=== PATIENT | male | born 1945 | race Caucasian/White ===

== ENCOUNTER 2021-02-28 08:48 | Inpatient (IN) | payer MEDICARE, MEDICAID ==
[~2021-02-28] VITALS: Ht 177.8 cm; Wt 70.5 kg
[~2021-02-28 08:48] MED LIST: ALOG12.5 PO; ASPI-611 PO; CHOL10006 PO; CYCL-1 PO; EMPA10TA PO; FLO0.4C PO; INSU100I25 SQ; LOP25T PO; MULT-384 PO; OXYC-150 PO; ROSU10TA2 PO
[2021-02-28] MEDS ORDERED: normal saline 1000ML IV soln IVB ONE (10:25)
[2021-02-28 11:06] LABS: CLARITY,URINE CLEAR (Clear); COLOR,URINE YELLOW (Yellow); GLUCOSE, URINE >=1000 mg/dl (Neg); KETONES,URINE 40 mg/dl (Neg); NITRITES, URINE NEGATIVE (Neg); OCCULT BLOOD,URINE NEGATIVE (Neg); PROTEIN,URINE NEGATIVE (Neg); UA COLLECTION TYPE URINAL
[2021-02-28 11:07] LABS: LEUKOCYTE ESTERASE ,URINE NEGATIVE (Neg); UROBILINOGEN,URINE 0.2 E.U/dL (0.2-1.0)
[2021-02-28 11:13] LABS: BASOPHILS % (AUTO) 0 % (0-1); EOSINOPHILS % (AUTO) 0 % (0-6); LYMPHOCYTES # (AUTO) 0.7 X10'3 (1.1-4.8); MONOCYTES # (AUTO) 0.5 X10'3 (0-0.9)
[2021-02-28 11:15] LABS: LYMPHOCYTES % (AUTO) 3.5 % (21-51); MEAN CORPUSCULAR HEMOGLOBIN 30.3 PG (27.0-31.0); MEAN CORPUSCULAR VOLUME 91.7 FL (78-98); MEAN PLATELET VOLUME 9.4 FL (7.4-10.4); MONOCYTES % (AUTO) 2.4 % (2-12); NEUTROPHILS % (AUTO) 94.1 % (42-75); PLATELET COUNT 274 X10'3 (140-440); RED BLOOD COUNT 1.78 X10'6 (4.70-6.10); RED CELL DISTRIBUTION WIDTH 20.2 % (11.5-14.5); WHITE BLOOD COUNT 19.1 X10'3 (4.5-11.0)
[2021-02-28 11:21] LABS: BACTERIA,URINE NONE SEEN /HPF (Neg); MUCUS STRANDS NONE SEEN /LPF (Neg); RBC,URINE NONE SEEN /HPF (0-2); SQUAMOUS EPITHELIAL CELL,UR NONE SEEN /LPF (FEW); WBC,URINE NONE SEEN /HPF (0-4)
[2021-02-28 11:28] LABS: ALANINE AMINOTRANSFERASE 21 U/L (12-78); ALBUMIN 2.4 G/DL (3.4-5.0); ALBUMIN/GLOBULIN RATIO 0.6 (1.1-1.5); ALKALINE PHOSPHATASE 84 IU/L (46-116); ANION GAP 16 (8-16); ASPARTATE AMINO TRANSFERASE 17 U/L (10-37); BILIRUBIN,TOTAL 0.4 MG/DL (0.1-1.0); BLOOD UREA NITROGEN 70 MG/DL (7-18); BUN/CREATININE RATIO 40.5 (5.4-32.0); CALCIUM 8.4 MG/DL (8.5-10.1); CHLORIDE 93 MMOL/L (99-107); CREATININE 1.73 MG/DL (0.60-1.10); ETHANOL < 0.010 GM/DL (0.0-0.010); SODIUM 131 MMOL/L (135-145); TOTAL CARBON DIOXIDE 22.5 MMOL/L (24-32); TOTAL PROTEIN 6.5 G/DL (6.4-8.2); eGFR 39 ML/MIN
[2021-02-28 11:30] LABS: GLUCOSE 745 MG/DL (70-104)
[2021-02-28 11:33] LABS: HEMATOCRIT 16.3 % (42.0-52.0); HEMOGLOBIN 5.4 g/dl (14.0-17.9)
[2021-02-28 11:59] LABS: ANISOCYTOSIS 3+; NUCLEATED RED BLOOD CELLS 2 /100WBC (0-0); PLATELET ESTIMATE NORMAL; POLYCHROMASIA 2+; TOTAL CELLS COUNTED 100
[2021-02-28] MEDS ORDERED: levoFLOXACIN-Levaquin 750MG/D5 150 ML IV ONE (12:05)
[2021-02-28] MEDS ORDERED: magnesium hydroxide 30ml (MOM) UD suspension PO PRN (14:15)
[2021-02-28] MEDS ORDERED: mag hydrox/Alum hydrox/simeth 30ml oral suspension PO PRN (14:15)
[2021-02-28] MEDS ORDERED: glucagon, human recombinant 1mg kit SUBCUT PRN (14:15)
[2021-02-28] MEDS ORDERED: ondansetron/PF 4mg/2ml inj IV PRN (14:15)
[2021-02-28] MEDS ORDERED: dextrose 50%-water 50ml dispensing syringe IV PRN ×2 (14:15)
[2021-02-28] MEDS ORDERED: acetaminophen 325mg tablet PO PRN ×2 (14:15)
[2021-02-28] MEDS ORDERED: HYDROcodone/acetaminophen 5mg/325mg tablet PO PRN (14:15)
[2021-02-28] MEDS ORDERED: morphine 2 MG/ML inj. syringe IV PRN ×2 (14:15)
[2021-02-28] MEDS ORDERED: dextrose ORAL solution 15 GM/59 ML bottle PO PRN ×2 (14:15)
[2021-02-28] MEDS ORDERED: MESSAGE TO PHARMACY PO ONE (14:15)
[2021-02-28 14:27] VITALS: BP 107/55
[2021-02-28 14:52] VITALS: BP 119/59
[2021-02-28 15:00] LABS: HEMOGLOBIN A1C 10.8 % (4.5-6.2)
[2021-02-28 17:18] VITALS: BP 88/42
[2021-02-28 17:25] VITALS: BP 88/42
[2021-02-28 17:50] VITALS: BP 115/50
--- NOTE | 2021-02-28 18:33 | NUR ---
ASSUMED CARE OF PT. PT LYING DOWN IN BED GETTING BLOOD TRANSFUSION. HE IS ABLE TO HAVE A FULL CONVERSATION WITH ME.
--- NOTE | 2021-02-28 18:40 | NUR ---
ASSUMED CARE OF PT WITH BLOOD HANGING BUT I AM UNABLE TO FIND ANY CHARTING DONE ON SECOND UNIT OF BLOOD. ATTEMPTED TO REACH PRIOR NURSE.
--- NOTE | 2021-02-28 18:55 | NUR ---
2ND UNIT STOPPED TRANSFUSION. VITALS INCLUDE 97.7 FAHRENHEIT, HEART RATE 89 BPM, RESPIRATORY RATE 16, BP 104/49.
[2021-02-28] MEDS: pantoprazole 40 MG vial IV SCH (23:18)
[2021-02-28] MEDS: docusate sod 100mg capsule PO SCH (23:21)
[2021-02-28 23:23] LABS: EOSINOPHILS % (AUTO) 0 % (0-6); HEMOGLOBIN 7.5 g/dl (14.0-17.9); MONOCYTES # (AUTO) 1.2 X10'3 (0-0.9)
[2021-02-28 23:24] LABS: BASOPHILS % (AUTO) 0 % (0-1); HEMATOCRIT 22.2 % (42.0-52.0); LYMPHOCYTES # (AUTO) 0.8 X10'3 (1.1-4.8); LYMPHOCYTES % (AUTO) 6.3 % (21-51); MEAN CORPUSCULAR HEMOGLOBIN 30.8 PG (27.0-31.0); MEAN CORPUSCULAR HGB CONC 33.8 g/dL (33.0-36.5); MEAN CORPUSCULAR VOLUME 91.1 FL (78-98); MEAN PLATELET VOLUME 9.8 FL (7.4-10.4); MONOCYTES % (AUTO) 8.8 % (2-12); NEUTROPHILS # (AUTO) 11.4 X10'3 (1.8-7.7); NEUTROPHILS % (AUTO) 84.9 % (42-75); PLATELET COUNT 201 X10'3 (140-440); RED BLOOD COUNT 2.43 X10'6 (4.70-6.10); RED CELL DISTRIBUTION WIDTH 16.9 % (11.5-14.5); WHITE BLOOD COUNT 13.4 X10'3 (4.5-11.0)
[2021-03-01] MEDS: insulin glargine (Lantus) pen - multi-dose SQ SCH ×2 (00:04→22:13)
--- NOTE | 2021-03-01 03:12 | NUR ---
BP TAKEN AT 0255 LIKELY NOT A TRUE NUMBER. BP CUFF WAS LOOSE. ONCE BP WAS READJUSTED BP READING AT 0300 WAS 114/60 WITH A MAP OF 73. I SPOKE TO DR SIERRA CONCERNING THE MATTER. HAVE AN ORDER FOR A LINDA CATHETER AND TO START NS RUNNING AT 100 ML/HR.
--- NOTE | 2021-03-01 03:33 | NUR ---
rodriguez catheter is placed. draining well.
[2021-03-01] MEDS ORDERED: normal saline 1000ml 1,000 ML IV SCH (03:55)
[2021-03-01] MEDS: normal saline 1000ml 1,000 ML IV SCH ×3 (04:20→22:45)
[2021-03-01 05:50] LABS: BASOPHILS % (AUTO) 0 % (0-1); EOSINOPHILS % (AUTO) 0 % (0-6); HEMOGLOBIN 7.7 g/dl (14.0-17.9); MONOCYTES # (AUTO) 0.9 X10'3 (0-0.9)
[2021-03-01 05:51] LABS: HEMATOCRIT 22.7 % (42.0-52.0); LYMPHOCYTES % (AUTO) 7.4 % (21-51); MEAN CORPUSCULAR HEMOGLOBIN 30.5 PG (27.0-31.0); MEAN CORPUSCULAR HGB CONC 33.7 g/dL (33.0-36.5); MEAN CORPUSCULAR VOLUME 90.4 FL (78-98); MEAN PLATELET VOLUME 9.6 FL (7.4-10.4); MONOCYTES % (AUTO) 6.7 % (2-12); NEUTROPHILS # (AUTO) 11.4 X10'3 (1.8-7.7); NEUTROPHILS % (AUTO) 85.9 % (42-75); PLATELET COUNT 211 X10'3 (140-440); RED BLOOD COUNT 2.51 X10'6 (4.70-6.10); RED CELL DISTRIBUTION WIDTH 17.1 % (11.5-14.5); WHITE BLOOD COUNT 13.2 X10'3 (4.5-11.0)
[2021-03-01 05:56] LABS: ALBUMIN 2.1 G/DL (3.4-5.0); ANION GAP 13 (8-16); BLOOD UREA NITROGEN 61 MG/DL (7-18); BUN/CREATININE RATIO 43.3 (5.4-32.0); CALCIUM 8.2 MG/DL (8.5-10.1); CHLORIDE 97 MMOL/L (99-107); CREATININE 1.41 MG/DL (0.60-1.10); GLUCOSE 444 MG/DL (70-104); POTASSIUM 3.3 MMOL/L (3.5-5.1); SODIUM 131 MMOL/L (135-145); TOTAL CARBON DIOXIDE 21.3 MMOL/L (24-32); eGFR 49 ML/MIN
[2021-03-01] MEDS: docusate sod 100mg capsule PO SCH ×3 (08:00→19:34)
[2021-03-01 08:07] LABS: NUCLEATED RED BLOOD CELLS 6 /100WBC (0-0); PLATELET ESTIMATE NORMAL; TOTAL CELLS COUNTED 100
[2021-03-01 08:08] LABS: ANISOCYTOSIS 1+; POIKILOCYTOSIS 1+; POLYCHROMASIA 3+
[2021-03-01] MEDS: pantoprazole 40 MG vial IV SCH ×2 (08:48→19:34)
[2021-03-01] MEDS: insulin Lispro (HumaLOG) vial - multi-dose SQ SCH ×3 (08:55→22:15)
--- NOTE | 2021-03-01 14:26 | NUR ---
dr knapp was here and given verbal orders for miralax for constipation and order potassium bicarb 40 meq eff po tab onces . Addendum: 03/01/21 at [address] AYALA ALSO GIVEN TH EORDER TO REPEAT CBC 24 HR AFTER THE LAST BLD TRANSFUSION.
--- NOTE | 2021-03-01 14:30 | NUR ---
Patient in room PCU 3027. I have received report from David DIAZ and had the opportunity to ask questions and will assume patient care when he arrives to the floor.
--- NOTE | 2021-03-01 15:05 | NUR ---
Patient arrive to the floor, vitals are stable
[2021-03-01 15:15] VITALS: BP 110/55
--- NOTE | 2021-03-01 16:07 | NUR ---
PAGER ID: [phone] MESSAGE: May I place Nba Kendrickphrey room 0389P on the K+ replacement protocol? His K+ is 3.3. Maureen ext [phone]
[2021-03-01 18:00] VITALS: BP 119/59
--- NOTE | 2021-03-01 18:14 | NUR ---
Problems reprioritized. Patient report given, questions answered & plan of care reviewed with Yariel RN.
[2021-03-01 19:26] LABS: EOSINOPHILS % (AUTO) 0 % (0-6); HEMOGLOBIN 7.3 g/dl (14.0-17.9); MEAN CORPUSCULAR HEMOGLOBIN 30.4 PG (27.0-31.0); MONOCYTES # (AUTO) 1.3 X10'3 (0-0.9); MONOCYTES % (AUTO) 7.4 % (2-12); NEUTROPHILS # (AUTO) 15.6 X10'3 (1.8-7.7); RED BLOOD COUNT 2.39 X10'6 (4.70-6.10)
[2021-03-01 19:28] LABS: BASOPHILS % (AUTO) 0 % (0-1); LYMPHOCYTES # (AUTO) 0.9 X10'3 (1.1-4.8); LYMPHOCYTES % (AUTO) 5.2 % (21-51); MEAN CORPUSCULAR VOLUME 92.2 FL (78-98); MEAN PLATELET VOLUME 8.9 FL (7.4-10.4); NEUTROPHILS % (AUTO) 87.4 % (42-75); PLATELET COUNT 220 X10'3 (140-440); RED CELL DISTRIBUTION WIDTH 18.2 % (11.5-14.5); WHITE BLOOD COUNT 17.9 X10'3 (4.5-11.0)
[2021-03-01] MEDS: POTASSIUM BICARB 20meq eff tab 20 MEQ TABLET.EFF PO SCH (20:58)
[2021-03-01] MEDS: polyethylene glycol 3350 17gm powd pack PO SCH ×2 (21:00→22:18)
[2021-03-01 22:00] VITALS: BP 121/62
--- NOTE | 2021-03-01 23:28 | NUR ---
Notified MD of patient Hematocrit level of 22.0. No new orders at this time.
[2021-03-02] VITALS (7 sets, daily range): BP systolic 96–117; BP diastolic 49–64
--- NOTE | 2021-03-02 06:26 | NUR ---
Patient in room PCU 3027. I have received report from Yariel DIAZ and had the opportunity to ask questions and assume patient care.
[2021-03-02 06:28] LABS: BASOPHILS % (AUTO) 0.1 % (0-1); EOSINOPHILS % (AUTO) 0 % (0-6); LYMPHOCYTES # (AUTO) 0.8 X10'3 (1.1-4.8); MONOCYTES # (AUTO) 1.4 X10'3 (0-0.9); NEUTROPHILS # (AUTO) 12.7 X10'3 (1.8-7.7)
--- NOTE | 2021-03-02 06:29 | NUR ---
No signs of distress noted. VSS throughout shift. Catheter and miki care performed. call light and personal belongings placed within reach. patient aware of plan of care. Report given to Maureen.
[2021-03-02 06:31] LABS: LYMPHOCYTES % (AUTO) 5.5 % (21-51); MEAN CORPUSCULAR HEMOGLOBIN 31.1 PG (27.0-31.0); MEAN CORPUSCULAR VOLUME 91.5 FL (78-98); MEAN PLATELET VOLUME 8.9 FL (7.4-10.4); MONOCYTES % (AUTO) 9.4 % (2-12); PLATELET COUNT 192 X10'3 (140-440); RED BLOOD COUNT 2.22 X10'6 (4.70-6.10); RED CELL DISTRIBUTION WIDTH 18.9 % (11.5-14.5); WHITE BLOOD COUNT 14.9 X10'3 (4.5-11.0)
[2021-03-02 06:52] LABS: ALBUMIN 1.9 G/DL (3.4-5.0); ANION GAP 8 (8-16); BLOOD UREA NITROGEN 37 MG/DL (7-18); CALCIUM 8.2 MG/DL (8.5-10.1); CHLORIDE 104 MMOL/L (99-107); CREATININE 1.12 MG/DL (0.60-1.10); GLUCOSE 201 MG/DL (70-104); SODIUM 136 MMOL/L (135-145); TOTAL CARBON DIOXIDE 24.5 MMOL/L (24-32); eGFR 64 ML/MIN
[2021-03-02 06:56] LABS: HEMATOCRIT 20.3 % (42.0-52.0); HEMOGLOBIN 6.9 g/dl (14.0-17.9)
--- NOTE | 2021-03-02 07:01 | NUR ---
Patient [facility] room 3024K has a critical Hgb of 6.9, and HCT 20.3. Please advise Ruth DIAZ ext. [phone].PAGER ID: [phone]
--- NOTE | 2021-03-02 07:18 | NUR ---
PAGER ID: [phone] MESSAGE: Wolf Stern [phone] has a critical K+ 3.0. Maureen ext [phone]
[2021-03-02] MEDS: pantoprazole 40 MG vial IV SCH (07:31)
[2021-03-02] MEDS: POTASSIUM BICARB 20meq eff tab 20 MEQ TABLET.EFF PO SCH ×2 (07:31→12:53)
[2021-03-02] MEDS: docusate sod 100mg capsule PO SCH (08:00)
[2021-03-02 08:17] LABS: ALANINE AMINOTRANSFERASE 17 U/L (12-78); ALBUMIN/GLOBULIN RATIO 0.6 (1.1-1.5); ALKALINE PHOSPHATASE 76 IU/L (46-116); ASPARTATE AMINO TRANSFERASE 25 U/L (10-37); BILIRUBIN,DIRECT 0.2 MG/DL (0-0.3); BILIRUBIN,TOTAL 0.5 MG/DL (0.1-1.0); TOTAL PROTEIN 5.3 G/DL (6.4-8.2)
[2021-03-02 08:48] LABS: PLATELET ESTIMATE NORMAL
[2021-03-02 08:49] LABS: ANISOCYTOSIS 2+; POLYCHROMASIA 2+
[2021-03-02 08:50] LABS: LARGE PLATELETS FEW
--- NOTE | 2021-03-02 09:05 | NUR ---
Diabetes consult: A1C 10.8 up from 8.9 in October of this year. Noted on last admit in October pt was DNR w/ comfort care, currently DNR this admit. DM education not appropriate at this time, will continue to monitor. Addendum: 03/02/21 at [address] Amended: Links added.
[2021-03-02] MEDS: normal saline 1000ml 1,000 ML IV SCH (09:55)
[2021-03-02 10:42] LABS: OCCULT BLOOD STOOL NEGATIVE (Neg)
[2021-03-02] MEDS: insulin Lispro (HumaLOG) vial - multi-dose SQ SCH (13:18)
[2021-03-02 15:36] LABS: HEMATOCRIT 24.4 % (42.0-52.0); HEMOGLOBIN 8.1 g/dl (14.0-17.9); MEAN CORPUSCULAR HEMOGLOBIN 30.4 PG (27.0-31.0); MEAN CORPUSCULAR VOLUME 92.1 FL (78-98); MEAN PLATELET VOLUME 9.1 FL (7.4-10.4); PLATELET COUNT 178 X10'3 (140-440); RED BLOOD COUNT 2.65 X10'6 (4.70-6.10); RED CELL DISTRIBUTION WIDTH 17.6 % (11.5-14.5); WHITE BLOOD COUNT 13.7 X10'3 (4.5-11.0)
--- NOTE | 2021-03-02 17:53 | NUR ---
I agree with Preceptee Ruth DIAZ's physical assessment and charting.
--- NOTE | 2021-03-02 17:54 | NUR ---
Patient is stable for discharge per Dr. Kothari orders. Report given to Gladys at [facility]. PIV discontinued, cannula intact. Batista catheter discontinued, cannula intact. youth nutritional monitor discontinued. Patient had no belongings to take with them. Patient transported by [facility] via a gurney by [facility] personnel.
== END 2021-03-02 17:50 | DRG 811 ==
LOC: ER 08:49 → ED HOLD 14:17 → EDBEDREQ 03-01 13:33 → PCU 3S 03-01 15:03
PROVIDERS: ADMIT Internal Medicine; ATTEND Internal Medicine
PROC: 30233N1 Transfusion of Nonautologous Red Blood Cells into Peripheral Vein, Percutaneous Approach (ICD-10-PCS; principal; 2021-02-28)
DX: D64.9 Anemia, unspecified (principal); J18.9 Pneumonia, unspecified organism; E43 Unspecified severe protein-calorie malnutrition; N17.9 Acute kidney failure, unspecified; J44.0 Chronic obstructive pulmonary disease with (acute) lower respiratory infection; E11.22 Type 2 diabetes mellitus with diabetic chronic kidney disease; N18.30 Chronic kidney disease, stage 3 unspecified; E11.65 Type 2 diabetes mellitus with hyperglycemia; I12.9 Hypertensive chronic kidney disease with stage 1 through stage 4 chronic kidney disease, or unspecified chronic kidney disease; E78.00 Pure hypercholesterolemia, unspecified; E78.5 Hyperlipidemia, unspecified; Z20.822 Contact with and (suspected) exposure to COVID-19; E87.6 Hypokalemia; W18.39XA Other fall on same level, initial encounter; F12.90 Cannabis use, unspecified, uncomplicated; D32.9 Benign neoplasm of meninges, unspecified; Z66 Do not resuscitate; N40.0 Benign prostatic hyperplasia without lower urinary tract symptoms; Z60.2 Problems related to living alone; S09.90XA Unspecified injury of head, initial encounter; Z79.4 Long term (current) use of insulin; Z79.82 Long term (current) use of aspirin; Z85.118 Personal history of other malignant neoplasm of bronchus and lung; Z79.84 Long term (current) use of oral hypoglycemic drugs; Z79.899 Other long term (current) drug therapy; Z68.22 Body mass index [BMI] 22.0-22.9, adult; Y93.89 Activity, other specified; Y99.8 Other external cause status; Y92.091 Bathroom in other non-institutional residence as the place of occurrence of the external cause
CPT/HCPCS: 36415; 36430; 70450; 71045; 80048; 80053; 80076; 80320; 81001; 82272; 82948; 83036; 83880; 84484; 85007; 85008; 85025; 85027; 85610; 86885; 86900; 86901; 86920; 87081; 87635; 93005; 96365; 99291; C9113; G0378; J1815; J1956; J2270; J7030; P9016

== ENCOUNTER 2021-03-05 07:56 | Inpatient (IN) | payer MEDICARE, MEDICAID ==
[2021-03-05] VITALS (9 sets, daily range): BP systolic 77–104; BP diastolic 41–53
[~2021-03-05] VITALS: Ht 179.1 cm; Wt 74.0 kg
[2021-03-05] MEDS ORDERED: normal saline 1000ml 1,000 ML IV ONE ×2 (08:10→08:45)
--- NOTE | 2021-03-05 08:12 | NUR ---
DR KEENAN IN TO ASSESS PATIENT AT THIS TIME, PATIENT STATES HE DOES NOT WANT INTUBATION NOR COMPRESSIONS. MD AWARE OF BP 84/43.
[2021-03-05 08:20] LABS: EOSINOPHILS % (AUTO) 0 % (0-6); LYMPHOCYTES # (AUTO) 0.6 X10'3 (1.1-4.8)
[2021-03-05 08:22] LABS: BASOPHILS % (AUTO) 0 % (0-1); MEAN CORPUSCULAR HEMOGLOBIN 31.1 PG (27.0-31.0); MEAN CORPUSCULAR VOLUME 97.1 FL (78-98); MEAN PLATELET VOLUME 9.4 FL (7.4-10.4); MONOCYTES # (AUTO) 0.7 X10'3 (0-0.9); NEUTROPHILS # (AUTO) 11.8 X10'3 (1.8-7.7); PLATELET COUNT 144 X10'3 (140-440); RED BLOOD COUNT 1.04 X10'6 (4.70-6.10); RED CELL DISTRIBUTION WIDTH 21.1 % (11.5-14.5); WHITE BLOOD COUNT 13.1 X10'3 (4.5-11.0)
[2021-03-05 08:33] LABS: HEMATOCRIT 10.1 % (42.0-52.0); HEMOGLOBIN 3.2 g/dl (14.0-17.9)
[2021-03-05 08:34] LABS: ALANINE AMINOTRANSFERASE 16 U/L (12-78); ALBUMIN 1.3 G/DL (3.4-5.0); ALBUMIN/GLOBULIN RATIO 0.5 (1.1-1.5); ALKALINE PHOSPHATASE 45 IU/L (46-116); ANION GAP 10 (8-16); ASPARTATE AMINO TRANSFERASE 18 U/L (10-37); BILIRUBIN,TOTAL 0.3 MG/DL (0.1-1.0); BLOOD UREA NITROGEN 57 MG/DL (7-18); BUN/CREATININE RATIO 38.5 (5.4-32.0); CALCIUM 7.8 MG/DL (8.5-10.1); CHLORIDE 104 MMOL/L (99-107); CREATININE 1.48 MG/DL (0.60-1.10); GLUCOSE 243 MG/DL (70-104); POTASSIUM 4.3 MMOL/L (3.5-5.1); SODIUM 136 MMOL/L (135-145); TOTAL PROTEIN 3.8 G/DL (6.4-8.2); eGFR 46 ML/MIN
[2021-03-05] MEDS ORDERED: tranexamic acid 100mg/ml inj. IV ONE (08:35)
[2021-03-05] MEDS ORDERED: pantoprazole 40 MG vial IV ONE (08:35)
[2021-03-05] MEDS ORDERED: iohexol 300mg/ml 100ml inj. ONE (08:47)
[2021-03-05] MEDS ORDERED: azithromycin/NS 500mg/250ml 250 ML IV ONE (09:00)
[2021-03-05] MEDS ORDERED: CefTRIAXone/D5W-Rocephin 1gm 50 ML IV ONE (09:00)
[2021-03-05] MEDS: pantoprazole 40MG/NS 100ML BAG 100 ML IV SCH ×3 (09:08→20:19)
[2021-03-05 09:12] LABS: ANISOCYTOSIS 3+; PLATELET ESTIMATE NORMAL; TOTAL CELLS COUNTED 100
[2021-03-05 09:13] LABS: POLYCHROMASIA 2+
[2021-03-05 09:14] LABS: SCHISTOCYTES FEW
[2021-03-05] MEDS ORDERED: NORepinephrine inj. 32 MG in normal saline 250ml IV soln 218 ML IV SCH (10:00)
[2021-03-05] MEDS ORDERED: ondansetron/PF 4mg/2ml inj IV ONE (10:00)
[2021-03-05] MEDS ORDERED: fentaNYL/PF 50MCG/1 ML 2ML syringe IV ONE (10:00)
[2021-03-05] MEDS ORDERED: NORepinephrine 8mg/ 250ml NS 250 ML IV SCH (10:10)
[2021-03-05 10:14] LABS: CLARITY,URINE SLIGHTLY CLOUDY (Clear); COLOR,URINE STRAW (Yellow); GLUCOSE, URINE >=1000 mg/dl (Neg); KETONES,URINE NEGATIVE (Neg); NITRITES, URINE NEGATIVE (Neg); OCCULT BLOOD,URINE MODERATE (Neg); PROTEIN,URINE NEGATIVE (Neg); UA COLLECTION TYPE NON-SPECIFIED
[2021-03-05 10:15] LABS: LEUKOCYTE ESTERASE ,URINE NEGATIVE (Neg); UROBILINOGEN,URINE 0.2 E.U/dL (0.2-1.0)
[2021-03-05 10:21] LABS: BACTERIA,URINE NONE SEEN /HPF (Neg); RBC,URINE NONE SEEN /HPF (0-2); SQUAMOUS EPITHELIAL CELL,UR NONE SEEN /LPF (FEW); WBC,URINE 0-4 /HPF (0-4)
[2021-03-05 11:25] LABS: OCCULT BLOOD STOOL POSITIVE (Neg)
[2021-03-05 13:06] LABS: BASOPHILS % (AUTO) 0.1 % (0-1); EOSINOPHILS % (AUTO) 0 % (0-6); LYMPHOCYTES # (AUTO) 0.5 X10'3 (1.1-4.8); LYMPHOCYTES % (AUTO) 4.6 % (21-51); MEAN CORPUSCULAR HEMOGLOBIN 30.4 PG (27.0-31.0); MEAN CORPUSCULAR HGB CONC 33.4 g/dL (33.0-36.5); MEAN PLATELET VOLUME 8.2 FL (7.4-10.4); MONOCYTES # (AUTO) 0.8 X10'3 (0-0.9); MONOCYTES % (AUTO) 7.3 % (2-12); NEUTROPHILS # (AUTO) 9.5 X10'3 (1.8-7.7); PLATELET COUNT 141 X10'3 (140-440); RED BLOOD COUNT 2.06 X10'6 (4.70-6.10); RED CELL DISTRIBUTION WIDTH 18.9 % (11.5-14.5); WHITE BLOOD COUNT 10.8 X10'3 (4.5-11.0)
[2021-03-05 13:10] LABS: HEMATOCRIT 18.7 % (42.0-52.0); HEMOGLOBIN 6.3 g/dl (14.0-17.9)
--- NOTE | 2021-03-05 13:21 | NUR ---
RELIEVING RN FOR BREAK, PT TO CT
[2021-03-05] MEDS ORDERED: metroNIDAZOLE-Flagyl 500mg/NS 100 ML IV STA (14:13)
[2021-03-05 14:26] LABS: ANISOCYTOSIS 2+; NUCLEATED RED BLOOD CELLS 1 /100WBC (0-0); PLATELET ESTIMATE NORMAL; POLYCHROMASIA 2+; TOTAL CELLS COUNTED 100
[2021-03-05] MEDS ORDERED: metroNIDAZOLE 500mg tablet PO ONE (14:55)
[2021-03-05 15:41] LABS: ABG BASE EXCESS -2.8 mmol/L (-2.0-2.0); ABG HCO3 20.5 mmol/L (22.0-26.0); ABG OXYGEN SATURATION 92.4 % (94-97); ABG PCO2 (T) 28.4 mmHg (35.0-48.0); ABG PO2 (T) 61.5 mmHg (75.0-100.0); ALLEN'S TEST POSITIVE; FCOHb 1.2 % (0.0-3.9); FMetHb 0.3 % (0.0-1.5); PATIENT TEMPERATURE 36.8; TOTAL HEMOGLOBIN 6.3 G/dl (14.0-18.0)
[2021-03-05] MEDS ORDERED: magnesium hydroxide 30ml (MOM) UD suspension PO PRN (16:20)
[2021-03-05] MEDS ORDERED: dextrose ORAL solution 15 GM/59 ML bottle PO PRN ×2 (16:20)
[2021-03-05] MEDS ORDERED: HYDROcodone/acetaminophen 5mg/325mg tablet PO PRN (16:20)
[2021-03-05] MEDS ORDERED: glucagon, human recombinant 1mg kit SUBCUT PRN (16:20)
[2021-03-05] MEDS ORDERED: acetaminophen 325mg tablet PO PRN (16:20)
[2021-03-05] MEDS ORDERED: MESSAGE TO PHARMACY PO ONE (16:20)
[2021-03-05] MEDS ORDERED: ondansetron/PF 4mg/2ml inj IV PRN (16:20)
[2021-03-05] MEDS ORDERED: dextrose 50%-water 50ml dispensing syringe IV PRN ×2 (16:20)
[2021-03-05] MEDS ORDERED: mag hydrox/Alum hydrox/simeth 30ml oral suspension PO PRN (16:20)
--- NOTE | 2021-03-05 16:26 | NUR ---
DR AYALA UPDATED ON PATIENT STATUS AT THIS TIME, AWARE OF BP 89/47, ORDERS RECEIVED, WILL CONTINUE TO MONITOR.
[2021-03-05 16:50] LABS: MEAN CORPUSCULAR HEMOGLOBIN 30.3 PG (27.0-31.0); MEAN CORPUSCULAR HGB CONC 33.4 g/dL (33.0-36.5); MEAN CORPUSCULAR VOLUME 90.7 FL (78-98); MEAN PLATELET VOLUME 7.9 FL (7.4-10.4); PLATELET COUNT 192 X10'3 (140-440); RED BLOOD COUNT 2.18 X10'6 (4.70-6.10); RED CELL DISTRIBUTION WIDTH 19.3 % (11.5-14.5); WHITE BLOOD COUNT 13.7 X10'3 (4.5-11.0)
[2021-03-05 16:57] LABS: PARTIAL THROMBOPLASTIN TIME 20 SECONDS (22-32)
[2021-03-05 17:00] LABS: HEMOGLOBIN 6.6 g/dl (14.0-17.9)
[2021-03-05 17:01] LABS: HEMATOCRIT 19.8 % (42.0-52.0)
--- NOTE | 2021-03-05 17:33 | NUR ---
per lab phone call. unable to collect A1C on patient because he is currently recieving blood transfusion. previous blood sample upon admission was limited therefore we do not have an A1C for this pt
[2021-03-05] MEDS ORDERED: cyclobenzaprine 10mg tablet PO PRN (18:40)
[2021-03-05] MEDS: docusate sod 100mg capsule PO SCH (20:18)
[2021-03-05] MEDS: tamsulosin 0.4mg capsule PO SCH (20:19)
[2021-03-05] MEDS: ciprofloxacin lact 400MG/200ML 200 ML IV SCH (20:53)
[2021-03-05] MEDS ORDERED: pantoprazole 40MG/NS 100ML BAG 100 ML IV SCH (21:00)
--- NOTE | 2021-03-05 21:20 | NUR ---
Received report from EMILY Montejo. Awaiting patient arrival to the floor.
--- NOTE | 2021-03-05 21:40 | NUR ---
Patient arrived to the floor via gurney acompanied by PCT. Placed in room 3023A. Patient awake and alert on room air, in no apparent distress. Call light and items of frequent use within reach. Bed alarm on and audible. Will continue to monitor.
[2021-03-05] MEDS: insulin glargine (Lantus) pen - multi-dose SQ SCH (22:14)
[2021-03-06] VITALS (11 sets, daily range): BP systolic 86–108; BP diastolic 39–60
[2021-03-06] MEDS: pantoprazole 40MG/NS 100ML BAG 100 ML IV SCH ×5 (00:46→21:31)
[2021-03-06 01:16] LABS: MEAN CORPUSCULAR HEMOGLOBIN 31.2 PG (27.0-31.0); MEAN CORPUSCULAR HGB CONC 34.9 g/dL (33.0-36.5); MEAN CORPUSCULAR VOLUME 89.3 FL (78-98); PLATELET COUNT 172 X10'3 (140-440); RED BLOOD COUNT 2.21 X10'6 (4.70-6.10); RED CELL DISTRIBUTION WIDTH 18.8 % (11.5-14.5); WHITE BLOOD COUNT 12.1 X10'3 (4.5-11.0)
[2021-03-06 01:21] LABS: HEMATOCRIT 19.7 % (42.0-52.0); HEMOGLOBIN 6.9 g/dl (14.0-17.9)
[2021-03-06] MEDS: acetaminophen 325mg tablet PO PRN (01:42)
--- NOTE | 2021-03-06 02:17 | NUR ---
PAGER ID: [phone] MESSAGE: EMILY Allen [phone] for Nba Acosta in 6420P. Pt receiving blood currently, but BP low 85/41 - it has been low, hx of CHF anything we should do? Thanks.
[2021-03-06] MEDS ORDERED: normal saline 1000ml 1,000 ML IVB ONE (02:30)
[2021-03-06] MEDS ORDERED: normal saline 1000ml 1,000 ML IV ONE (02:30)
--- NOTE | 2021-03-06 06:20 | NUR ---
Problems reprioritized. Patient report given, questions answered & plan of care reviewed with EMILY Deras.
[2021-03-06 07:03] LABS: BASOPHILS % (AUTO) 0.1 % (0-1); EOSINOPHILS % (AUTO) 0.2 % (0-6); HEMOGLOBIN 7.7 g/dl (14.0-17.9); MEAN CORPUSCULAR HEMOGLOBIN 31.2 PG (27.0-31.0); MEAN CORPUSCULAR HGB CONC 34.3 g/dL (33.0-36.5); MONOCYTES # (AUTO) 1.2 X10'3 (0-0.9); RED BLOOD COUNT 2.48 X10'6 (4.70-6.10); RED CELL DISTRIBUTION WIDTH 17.8 % (11.5-14.5)
[2021-03-06 07:05] LABS: HEMATOCRIT 22.5 % (42.0-52.0); LYMPHOCYTES # (AUTO) 0.6 X10'3 (1.1-4.8); LYMPHOCYTES % (AUTO) 5.3 % (21-51); MONOCYTES % (AUTO) 10.8 % (2-12); NEUTROPHILS % (AUTO) 83.6 % (42-75); PLATELET COUNT 164 X10'3 (140-440); WHITE BLOOD COUNT 10.8 X10'3 (4.5-11.0)
[2021-03-06 07:13] LABS: ALBUMIN 1.6 G/DL (3.4-5.0); ANION GAP 8 (8-16); BLOOD UREA NITROGEN 41 MG/DL (7-18); BUN/CREATININE RATIO 35.7 (5.4-32.0); CALCIUM 7.2 MG/DL (8.5-10.1); CHLORIDE 109 MMOL/L (99-107); CREATININE 1.15 MG/DL (0.60-1.10); GLUCOSE 188 MG/DL (70-104); POTASSIUM 3.6 MMOL/L (3.5-5.1); SODIUM 139 MMOL/L (135-145); TOTAL CARBON DIOXIDE 21.7 MMOL/L (24-32); eGFR 62 ML/MIN
[2021-03-06] MEDS: docusate sod 100mg capsule PO SCH ×2 (08:00→19:32)
[2021-03-06] MEDS: cholecalciferol (vitamin D3) 1,000 unit (25mcg) tablet PO SCH (08:00)
[2021-03-06] MEDS: multivitamins, therapeutics tablet PO SCH (08:00)
[2021-03-06] MEDS: atorvastatin 20mg tablet PO SCH (08:00)
[2021-03-06] MEDS: ciprofloxacin lact 400MG/200ML 200 ML IV SCH ×2 (08:26→19:34)
[2021-03-06] MEDS: insulin Lispro (HumaLOG) vial - multi-dose SQ SCH ×4 (08:41→21:33)
--- NOTE | 2021-03-06 09:37 | NUR ---
[id number]- SPOKE TO MD AYALA ON HIS ROUNDS, PAGE NOT RECEIVED. INFORMED HIM PT AGREEABLE TO PROCEDURE, HAS BEEN NPO SINCE CT. PLAN TO DO EGD
[2021-03-06 11:44] LABS: TOTAL CELLS COUNTED 100
[2021-03-06 11:45] LABS: ANISOCYTOSIS 1+; PLATELET ESTIMATE NORMAL
[2021-03-06 11:50] LABS: POLYCHROMASIA 1+
[2021-03-06 11:51] LABS: NUCLEATED RED BLOOD CELLS 3 /100WBC (0-0)
--- NOTE | 2021-03-06 12:00 | NUR ---
spoke to GI lab , jack weiner 4 nurse reports. MD Mcginnis notified. FC removed and DTV by 1800
--- NOTE | 2021-03-06 13:50 | NUR ---
PAGER ID: [phone] MESSAGE: 302Frantz Peguero- cdiff negative. continue to discharge? received call back from MD gandara 2 min after page. Pt has met DTV with 400ml clear yellow urine. MD Gandara says continue with discharge.
[2021-03-06 14:19] LABS: BASOPHILS % (AUTO) 0.1 % (0-1); EOSINOPHILS % (AUTO) 0.2 % (0-6); HEMOGLOBIN 7.4 g/dl (14.0-17.9); LYMPHOCYTES # (AUTO) 0.9 X10'3 (1.1-4.8); MEAN CORPUSCULAR HEMOGLOBIN 31.2 PG (27.0-31.0)
[2021-03-06 14:21] LABS: LYMPHOCYTES % (AUTO) 8.6 % (21-51); MEAN CORPUSCULAR HGB CONC 34.2 g/dL (33.0-36.5); MEAN CORPUSCULAR VOLUME 91.2 FL (78-98); MEAN PLATELET VOLUME 8.1 FL (7.4-10.4); MONOCYTES % (AUTO) 9.7 % (2-12); NEUTROPHILS # (AUTO) 8.4 X10'3 (1.8-7.7); NEUTROPHILS % (AUTO) 81.4 % (42-75); PLATELET COUNT 177 X10'3 (140-440); RED BLOOD COUNT 2.37 X10'6 (4.70-6.10); RED CELL DISTRIBUTION WIDTH 18.2 % (11.5-14.5); WHITE BLOOD COUNT 10.3 X10'3 (4.5-11.0)
[2021-03-06 14:25] LABS: HEMATOCRIT 21.6 % (42.0-52.0)
[2021-03-06] MEDS: morphine 2 MG/ML inj. syringe IV PRN ×2 (15:20→19:34)
--- NOTE | 2021-03-06 15:33 | NUR ---
PAGER ID: [phone] MESSAGE: 3023A errol arvizu- 7.4.6, EGD being bumped until tomorrow Raffi [phone]
--- NOTE | 2021-03-06 16:49 | NUR ---
DM consult: Pt with T2DM, current A1c is 10.8%. Pt seen at bedside for written and verbal DM education. Pt states he currently does not see a physician, check his BG levels, or take any medications for DM, though is in the process of getting set up with a [facility] where [facility] to get a CGM. Pt states he used to take insulin however he just stopped because he "gave up" and was tired of poking himself. RD encouraged pt to f/u with physician regarding appropriate rx for DM management. Per CM note pt came from [facility], pt states his blood sugars are not being checked there. Pt states he does limit his carb intake for DM management. Pt provided with RD contact information and encouraged to reach out if needed. Pt endorses a good appetite and denies food allergies or difficulty chewing/swallowing. Will continue to follow. Addendum: 03/06/21 at [address] Amended: Links added.
--- NOTE | 2021-03-06 17:20 | NUR ---
Pt had second large black tarry malodorous stool
--- NOTE | 2021-03-06 18:25 | NUR ---
Problems reprioritized. Patient report given, questions answered & plan of care reviewed with Sirisha RN.
[2021-03-06] MEDS: tamsulosin 0.4mg capsule PO SCH (21:14)
[2021-03-06] MEDS: insulin glargine (Lantus) pen - multi-dose SQ SCH (21:35)
[2021-03-06 21:45] LABS: EOSINOPHILS % (AUTO) 0.4 % (0-6); LYMPHOCYTES # (AUTO) 0.8 X10'3 (1.1-4.8); MEAN CORPUSCULAR VOLUME 93.4 FL (78-98); PLATELET COUNT 169 X10'3 (140-440); RED BLOOD COUNT 2.15 X10'6 (4.70-6.10); WHITE BLOOD COUNT 9.6 X10'3 (4.5-11.0)
[2021-03-06 21:47] LABS: BASOPHILS % (AUTO) 0.1 % (0-1); LYMPHOCYTES % (AUTO) 8.7 % (21-51); MEAN CORPUSCULAR HEMOGLOBIN 31.7 PG (27.0-31.0); MEAN CORPUSCULAR HGB CONC 33.9 g/dL (33.0-36.5); MEAN PLATELET VOLUME 8.3 FL (7.4-10.4); MONOCYTES # (AUTO) 1.4 X10'3 (0-0.9); MONOCYTES % (AUTO) 14.5 % (2-12); NEUTROPHILS # (AUTO) 7.3 X10'3 (1.8-7.7); NEUTROPHILS % (AUTO) 76.3 % (42-75); RED CELL DISTRIBUTION WIDTH 18.3 % (11.5-14.5)
[2021-03-06] MEDS: temazepam 15mg capsule PO PRN (21:47)
[2021-03-06 21:54] LABS: HEMOGLOBIN 6.8 g/dl (14.0-17.9)
--- NOTE | 2021-03-06 22:27 | NUR ---
Patient`s latest hemoglobin is 6.8, and hematocrit 20.0. Patient is asymptomatic; alert and responsive, denies respiratory and physical distress; vitals 110/70; 71; 18; 98.4; 95% on room air. Lung sounds clear on auscultation. MD Stoner paged; expecting new orders. Addendum: 03/06/21 at 2236 by Dano Rodriguez Travelrachana DIAZ MD Stoner paged for the above hemoglobin of 6.8 and hematocrit of 20.0; states no transfusion at this time. Will continue to monitor patient. No active bleeding noted.
[2021-03-07] VITALS (20 sets, daily range): BP systolic 81–136; BP diastolic 46–73
[2021-03-07] MEDS: pantoprazole 40MG/NS 100ML BAG 100 ML IV SCH ×5 (00:27→22:09)
[2021-03-07] MEDS: morphine 2 MG/ML inj. syringe IV PRN ×3 (05:48→16:32)
[2021-03-07] MEDS ORDERED: fentaNYL/PF 50MCG/1 ML 2ML syringe ONE (06:28)
[2021-03-07] MEDS ORDERED: LIDOcaine Viscous 15ml cup ONE (06:29)
[2021-03-07] MEDS ORDERED: MIDAZolam 1 MG/ML 5ML VIAL ONE (06:29)
[2021-03-07 06:44] LABS: BASOPHILS % (AUTO) 0.1 % (0-1); LYMPHOCYTES # (AUTO) 0.6 X10'3 (1.1-4.8); MEAN CORPUSCULAR HGB CONC 34.4 g/dL (33.0-36.5); MONOCYTES % (AUTO) 13.6 % (2-12); RED BLOOD COUNT 2.27 X10'6 (4.70-6.10); WHITE BLOOD COUNT 7.7 X10'3 (4.5-11.0)
[2021-03-07 06:46] LABS: ALBUMIN 1.6 G/DL (3.4-5.0); ANION GAP 8 (8-16); BLOOD UREA NITROGEN 29 MG/DL (7-18); CALCIUM 7.5 MG/DL (8.5-10.1); CHLORIDE 107 MMOL/L (99-107); GLUCOSE 140 MG/DL (70-104); POTASSIUM 3.3 MMOL/L (3.5-5.1); SODIUM 137 MMOL/L (135-145); eGFR 73 ML/MIN
[2021-03-07 06:47] LABS: EOSINOPHILS % (AUTO) 0.6 % (0-6); LYMPHOCYTES % (AUTO) 8.2 % (21-51); MEAN CORPUSCULAR HEMOGLOBIN 31.9 PG (27.0-31.0); MEAN CORPUSCULAR VOLUME 92.7 FL (78-98); MEAN PLATELET VOLUME 8.5 FL (7.4-10.4); NEUTROPHILS # (AUTO) 5.9 X10'3 (1.8-7.7); NEUTROPHILS % (AUTO) 77.5 % (42-75); PLATELET COUNT 175 X10'3 (140-440); RED CELL DISTRIBUTION WIDTH 18.1 % (11.5-14.5)
[2021-03-07 07:07] LABS: HEMOGLOBIN 7.2 g/dl (14.0-17.9)
[2021-03-07] MEDS: docusate sod 100mg capsule PO SCH ×2 (08:00→20:00)
--- NOTE | 2021-03-07 08:14 | NUR ---
aprox 0650 to d via w/c
[2021-03-07 08:15] LABS: NUCLEATED RED BLOOD CELLS 3 /100WBC (0-0); TOTAL CELLS COUNTED 100
[2021-03-07 08:16] LABS: ANISOCYTOSIS 2+; PLATELET ESTIMATE NORMAL; POLYCHROMASIA 3+
--- NOTE | 2021-03-07 09:00 | NUR ---
RETURN FROM EGD. AWAKE STABLE
[2021-03-07] MEDS: cholecalciferol (vitamin D3) 1,000 unit (25mcg) tablet PO SCH (09:11)
[2021-03-07] MEDS: multivitamins, therapeutics tablet PO SCH (09:11)
[2021-03-07] MEDS: ciprofloxacin lact 400MG/200ML 200 ML IV SCH (09:12)
[2021-03-07] MEDS: atorvastatin 20mg tablet PO SCH (09:12)
[2021-03-07] MEDS: insulin Lispro (HumaLOG) vial - multi-dose SQ SCH ×3 (09:43→20:57)
--- NOTE | 2021-03-07 12:00 | NUR ---
pLACED 2 NEW 20 G IV'S. ONE TO EACH AC D/T INFILTRATION IN FIRST ( REMOVED BY GI) AND DISPLACEMENT OF OTHER. CATH TIP INTACT ON LATER.
--- NOTE | 2021-03-07 12:57 | NUR ---
1250 start blood transfusion PRBC
--- NOTE | 2021-03-07 13:06 | NUR ---
asymptomatic during transfusion
--- NOTE | 2021-03-07 13:48 | NUR ---
Bladder scan of 350m plus over flow- postvoid residual was 280m
--- NOTE | 2021-03-07 18:28 | NUR ---
Problems reprioritized. Patient report given, questions answered & plan of care reviewed with ANA DIAZ.
[2021-03-07 18:58] LABS: BASOPHILS % (AUTO) 0.2 % (0-1); LYMPHOCYTES # (AUTO) 0.6 X10'3 (1.1-4.8); MEAN CORPUSCULAR HGB CONC 34.4 g/dL (33.0-36.5); MONOCYTES # (AUTO) 0.9 X10'3 (0-0.9); NEUTROPHILS % (AUTO) 75.7 % (42-75)
[2021-03-07 19:01] LABS: EOSINOPHILS % (AUTO) 0.6 % (0-6); HEMOGLOBIN 7.9 g/dl (14.0-17.9); LYMPHOCYTES % (AUTO) 9.6 % (21-51); MEAN CORPUSCULAR HEMOGLOBIN 31.5 PG (27.0-31.0); MEAN CORPUSCULAR VOLUME 91.6 FL (78-98); MEAN PLATELET VOLUME 8.3 FL (7.4-10.4); MONOCYTES % (AUTO) 13.9 % (2-12); PLATELET COUNT 181 X10'3 (140-440); RED BLOOD COUNT 2.52 X10'6 (4.70-6.10); RED CELL DISTRIBUTION WIDTH 17.2 % (11.5-14.5); WHITE BLOOD COUNT 6.6 X10'3 (4.5-11.0)
[2021-03-07] MEDS: tamsulosin 0.4mg capsule PO SCH (21:01)
[2021-03-07] MEDS: insulin glargine (Lantus) pen - multi-dose SQ SCH (21:05)
[2021-03-07] MEDS: temazepam 15mg capsule PO PRN (21:08)
[2021-03-08] MEDS: oxyCODONE/APAP 10/325mg tablet PO PRN ×2 (00:23→09:10)
--- NOTE | 2021-03-08 01:55 | NUR ---
reviewed and edited SRN assessment.
[2021-03-08 02:00] VITALS: BP 115/55
[2021-03-08] MEDS: pantoprazole 40MG/NS 100ML BAG 100 ML IV SCH ×3 (04:46→10:17)
[2021-03-08 06:31] LABS: EOSINOPHILS % (AUTO) 0.9 % (0-6); LYMPHOCYTES # (AUTO) 0.8 X10'3 (1.1-4.8); MEAN CORPUSCULAR HGB CONC 34.2 g/dL (33.0-36.5); MONOCYTES # (AUTO) 0.8 X10'3 (0-0.9); NEUTROPHILS # (AUTO) 2.8 X10'3 (1.8-7.7); WHITE BLOOD COUNT 4.4 X10'3 (4.5-11.0)
[2021-03-08 06:33] LABS: BASOPHILS % (AUTO) 0.2 % (0-1); HEMATOCRIT 25.9 % (42.0-52.0); HEMOGLOBIN 8.9 g/dl (14.0-17.9); LYMPHOCYTES % (AUTO) 18.2 % (21-51); MEAN CORPUSCULAR VOLUME 93.6 FL (78-98); MEAN PLATELET VOLUME 8.7 FL (7.4-10.4); MONOCYTES % (AUTO) 17.8 % (2-12); NEUTROPHILS % (AUTO) 62.9 % (42-75); PLATELET COUNT 194 X10'3 (140-440); RED BLOOD COUNT 2.77 X10'6 (4.70-6.10); RED CELL DISTRIBUTION WIDTH 17.7 % (11.5-14.5)
--- NOTE | 2021-03-08 06:39 | NUR ---
Problems reprioritized. Patient report given, questions answered & plan of care reviewed with
[2021-03-08 06:43] LABS: ALBUMIN 1.6 G/DL (3.4-5.0); ANION GAP 7 (8-16); BLOOD UREA NITROGEN 16 MG/DL (7-18); CHLORIDE 107 MMOL/L (99-107); CREATININE 0.94 MG/DL (0.60-1.10); GLUCOSE 100 MG/DL (70-104); POTASSIUM 3.8 MMOL/L (3.5-5.1); SODIUM 137 MMOL/L (135-145); TOTAL CARBON DIOXIDE 23.5 MMOL/L (24-32); eGFR 78 ML/MIN
[2021-03-08 07:00] VITALS: BP 108/57
--- NOTE | 2021-03-08 07:24 | NUR ---
Patient in room PCU 3023A. I have received report from EMILY PEREZ and had the opportunity to ask questions and assume patient care.
[2021-03-08 07:35] LABS: ANISOCYTOSIS 1+; NUCLEATED RED BLOOD CELLS 2 /100WBC (0-0); PLATELET ESTIMATE NORMAL; TOTAL CELLS COUNTED 100
[2021-03-08 07:36] LABS: POIKILOCYTOSIS 1+; POLYCHROMASIA 3+
[2021-03-08] MEDS: docusate sod 100mg capsule PO SCH (08:00)
[2021-03-08] MEDS: atorvastatin 20mg tablet PO SCH (09:10)
[2021-03-08] MEDS: multivitamins, therapeutics tablet PO SCH (09:10)
[2021-03-08] MEDS: cholecalciferol (vitamin D3) 1,000 unit (25mcg) tablet PO SCH (09:10)
[2021-03-08] MEDS: insulin Lispro (HumaLOG) vial - multi-dose SQ SCH (09:17)
[2021-03-08 11:00] VITALS: BP 107/57
[2021-03-08] MEDS: acetaminophen 325mg tablet PO PRN (12:32)
--- NOTE | 2021-03-08 14:05 | NUR ---
PATIENT STABLE AND APPROPRIATE FOR DISCHARGE, IVS TAKEN OUT, TELE REMOVED, REPORT CALLED TO EMILY AGUILAR AT [facility], PACKET GIVEN TO [facility] STAFF, PATIENT TAKEN TO [facility] BY [facility]PER[facility] STAFF.
== END 2021-03-08 14:05 | DRG 377 ==
LOC: ER 07:57 → ED HOLD 16:21 → PCU 3S 21:44
PROVIDERS: ADMIT Internal Medicine; ATTEND Internal Medicine
PROC: 30233K1 Transfusion of Nonautologous Frozen Plasma into Peripheral Vein, Percutaneous Approach (ICD-10-PCS; principal; 2021-03-05)
PROC: 30233N1 Transfusion of Nonautologous Red Blood Cells into Peripheral Vein, Percutaneous Approach (ICD-10-PCS; 2021-03-05)
PROC: BW211ZZ Computerized Tomography (CT Scan) of Abdomen and Pelvis using Low Osmolar Contrast (ICD-10-PCS; 2021-03-05)
PROC: 0DB98ZX Excision of Duodenum, Via Natural or Artificial Opening Endoscopic, Diagnostic (ICD-10-PCS; 2021-03-07)
PROC: 0DB68ZX Excision of Stomach, Via Natural or Artificial Opening Endoscopic, Diagnostic (ICD-10-PCS; 2021-03-07)
DX: K26.4 Chronic or unspecified duodenal ulcer with hemorrhage (principal); R57.1 Hypovolemic shock; E43 Unspecified severe protein-calorie malnutrition; N17.0 Acute kidney failure with tubular necrosis; E87.3 Alkalosis; E78.00 Pure hypercholesterolemia, unspecified; E78.5 Hyperlipidemia, unspecified; Z20.822 Contact with and (suspected) exposure to COVID-19; R09.02 Hypoxemia; E86.0 Dehydration; I10 Essential (primary) hypertension; E11.65 Type 2 diabetes mellitus with hyperglycemia; E86.1 Hypovolemia; J44.9 Chronic obstructive pulmonary disease, unspecified; K52.9 Noninfective gastroenteritis and colitis, unspecified; N40.0 Benign prostatic hyperplasia without lower urinary tract symptoms; Z66 Do not resuscitate; Z79.899 Other long term (current) drug therapy; Z85.118 Personal history of other malignant neoplasm of bronchus and lung; Z68.23 Body mass index [BMI] 23.0-23.9, adult
CPT/HCPCS: 36415; 36430; 36600; 43239; 71045; 74177; 80048; 80053; 81001; 82272; 82803; 82948; 83605; 83880; 84145; 84484; 85007; 85018; 85025; 85027; 85610; 85730; 86885; 86900; 86901; 86920; 87040; 87081; 87635; 88305; 93005; 96361; 96365; 96367; 96375; 99152; 99291; 99292; A4620; C9113; C9803; G0378; J0456; J0696; J0744; J1815; J2250; J2270; J3010; J3490; J7030; J7040; P9016; P9035; P9059; Q9967

== ENCOUNTER 2021-06-12 10:37 | Emergency (ER) | payer MEDICARE, MEDICAID ==
[~2021-06-12] VITALS: Ht 177.8 cm; Wt 72.0 kg
[2021-06-12] MEDS ORDERED: normal saline 1000ML IV soln IV ONE (11:05)
[2021-06-12] MEDS ORDERED: levoFLOXACIN-Levaquin 750MG/D5 150 ML IV ONE (11:05)
[2021-06-12 11:36] LABS: BASOPHILS % (AUTO) 0.1 % (0-1); EOSINOPHILS % (AUTO) 0.2 % (0-6); LYMPHOCYTES # (AUTO) 1.4 X10'3 (1.1-4.8); LYMPHOCYTES % (AUTO) 7.8 % (21-51); MEAN CORPUSCULAR HEMOGLOBIN 24.8 PG (27.0-31.0); MEAN CORPUSCULAR VOLUME 77.4 FL (78-98); MEAN PLATELET VOLUME 8.1 FL (7.4-10.4); MONOCYTES # (AUTO) 1.5 X10'3 (0-0.9); NEUTROPHILS # (AUTO) 15.6 X10'3 (1.8-7.7); NEUTROPHILS % (AUTO) 83.9 % (42-75); PLATELET COUNT 404 X10'3 (140-440); RED BLOOD COUNT 3.23 X10'6 (4.70-6.10); RED CELL DISTRIBUTION WIDTH 20.1 % (11.5-14.5); WHITE BLOOD COUNT 18.6 X10'3 (4.5-11.0)
[2021-06-12 11:45] LABS: ALANINE AMINOTRANSFERASE 43 U/L (12-78); ALBUMIN 1.9 G/DL (3.4-5.0); ALBUMIN/GLOBULIN RATIO 0.3 (1.1-1.5); ALKALINE PHOSPHATASE 240 IU/L (46-116); ANION GAP 10 (8-16); ASPARTATE AMINO TRANSFERASE 59 U/L (10-37); BILIRUBIN,TOTAL 0.4 MG/DL (0.1-1.0); BLOOD UREA NITROGEN 32 MG/DL (7-18); BUN/CREATININE RATIO 21.8 (5.4-32.0); CHLORIDE 94 MMOL/L (99-107); CREATININE 1.47 MG/DL (0.60-1.10); GLUCOSE 189 MG/DL (70-104); POTASSIUM 4.6 MMOL/L (3.5-5.1); SODIUM 129 MMOL/L (135-145); TOTAL CARBON DIOXIDE 25.1 MMOL/L (24-32); TOTAL PROTEIN 8.9 G/DL (6.4-8.2); eGFR 47 ML/MIN
[2021-06-12 11:47] LABS: CALCIUM 12.1 MG/DL (8.5-10.1)
[2021-06-12 13:17] LABS: ANISOCYTOSIS 3+; HYPOCHROMASIA 1+; MICROCYTOSIS 1+; PLATELET ESTIMATE NORMAL; POLYCHROMASIA 2+; ROULEAUX 1+; TOTAL CELLS COUNTED 100; TOXIC GRANULATION 1+; TOXIC VACUOLATION FEW
[2021-06-12] MEDS ORDERED: iohexol 300mg/ml 100ml inj. ONE (14:34)
--- NOTE | 2021-06-12 15:21 | NUR ---
brother Earle Washburn called for information. [phone]
[2021-06-12] MEDS ORDERED: HYDR-3965 PO (18:08)
[2021-06-12] MEDS ORDERED: FLO0.4C PO (18:08)
[2021-06-12] MEDS ORDERED: DULO60CA65 PO (18:08)
[2021-06-12] MEDS ORDERED: METO25TA6 PO (18:08)
[2021-06-12] MEDS ORDERED: ROSU10TA28 PO (18:08)
[2021-06-12 20:16] VITALS: BP 110/54
[2021-06-12] MEDS ORDERED: HYDROcodone/acetaminophen 5mg/325mg tablet PO ONE (20:30)
== END 2021-06-13 00:11 | disposition short-term general hospital (02) ==
LOC: ER 10:39
DX: I95.9 Hypotension, unspecified (principal); J90 Pleural effusion, not elsewhere classified; J98.19 Other pulmonary collapse; R59.0 Localized enlarged lymph nodes; E78.00 Pure hypercholesterolemia, unspecified; I10 Essential (primary) hypertension; J44.9 Chronic obstructive pulmonary disease, unspecified; E11.9 Type 2 diabetes mellitus without complications; Z85.118 Personal history of other malignant neoplasm of bronchus and lung; Z79.4 Long term (current) use of insulin; Z79.899 Other long term (current) drug therapy
CPT/HCPCS: 36415; 71045; 71260; 80053; 82948; 83605; 84145; 85007; 85025; 86885; 86900; 86901; 87040; 96365; 96366; 99285; J1956; J7030; Q9967